=== PATIENT | male | born 1950 | race Caucasian/White ===

== ENCOUNTER 2016-09-15 08:58 | Day surgery (SDC) | payer OTHER ==
--- NOTE | ~2016-09-15 | OP ---
Record Of Operation [facility] [address] [place]. [address] NAME: SHRUTI TONY : 52 [place] [facility] [place] [id number] AGE: 66 ADM/REG DATE : 09/15/16 MR#: [id number] REPORT SERV DATE: 09/15/16 DICTATED BY: JERSON WHITNEY DATE: 09/15/16 REPORT STATUS : Draft TRANSCRIBED BY: ANTIONETTE DATE: 09/15/16 DATE OF PROCEDURE: PREPROCEDURE DIAGNOSIS: Screening colonoscopy, history of polyps, and possible anal mass. POSTPROCEDURE DIAGNOSIS: Polyps at 15 cm in the rectum, multiple removed which were diminutive about 2 mm in size; 70 cm hepatic flexure polyp measuring 0.5 cm sessile polyp removed with hot biopsy forceps; 40 cm descending colon polyps measuring 10 mm removed with hot biopsy polypectomy technique and then multiple hypertrophic papillae, multiple were removed using hot biopsy forceps. PROCEDURE: Colonoscopy with hot biopsy. The patient was taken to the endoscopy suite, positioned in the left lateral decubitus position. Informed consent was obtained followed by IV sedation delivered by [employer]. Digital rectal exam was performed. The mass is palpable just above the anal canal and it is mobile which makes it very difficult to identify it. The scope was navigated without difficulty to the ileocecal valve where the appendiceal orifice was identified in cecal straps. Prep was adequate, it was thin liquid stool which was easily suctioned and more than 85% of the mucosa was identified. In the hepatic flexure at 70 cm, a 0.5 cm sessile polyp was noted. This was removed in its entirety with hot biopsy polypectomy technique. The scope was withdrawn over a 12-minute period of time. At 40 cm in the descending colon, another sessile polyp measuring 10 mm was removed with hot biopsy polypectomy technique and then the scope was withdrawn into the rectum retroflexed. There were multiple hypertrophic papillae, 3 of which were biopsied and removed using hot biopsy polypectomy technique. The scope was withdrawn. He will need repeat colonoscopy in 3-to-5 years pending pathology results. VIRGEN/ANTIONETTE Jerson Whitney M.D. / [id number] CC: Maxwell Bruno M.D. Joseph Sledge III, M.D.
[~2016-09-15 08:58] MED LIST: ASAEC PO; FISH-EPA1000 MG PO; LIPITOR40 PO; LOP50 PO
== END 2016-09-15 23:59 | disposition home health service (06) ==
LOC: DMU 08:58
PROVIDERS: Surgery
PROC: 0DBE8ZX Excision of Large Intestine, Via Natural or Artificial Opening Endoscopic, Diagnostic (ICD-10-PCS; 2016-09-15)
PROC: 0DBP8ZX Excision of Rectum, Via Natural or Artificial Opening Endoscopic, Diagnostic (ICD-10-PCS; 2016-09-15)
PROC: 0DBL8ZX Excision of Transverse Colon, Via Natural or Artificial Opening Endoscopic, Diagnostic (ICD-10-PCS; 2016-09-15)
PROC: 0DBM8ZX Excision of Descending Colon, Via Natural or Artificial Opening Endoscopic, Diagnostic (ICD-10-PCS; principal; 2016-09-15 10:00)
DX: Z12.11 Encounter for screening for malignant neoplasm of colon (principal); D12.3 Benign neoplasm of transverse colon; D12.4 Benign neoplasm of descending colon; I10 Essential (primary) hypertension; K62.1 Rectal polyp; E78.5 Hyperlipidemia, unspecified; I25.10 Atherosclerotic heart disease of native coronary artery without angina pectoris; E78.00 Pure hypercholesterolemia, unspecified; M19.90 Unspecified osteoarthritis, unspecified site; Z86.010 Personal history of colon polyps; Z87.891 Personal history of nicotine dependence
CPT/HCPCS: 88305